=== PATIENT | female | born 1960 | race Caucasian/White ===

== ENCOUNTER 2017-04-24 11:31 | Emergency (ER) | payer OTHER ==
[2017-04-24 11:50] VITALS: BP 118/62
--- NOTE | 2017-04-24 12:24 | UC ---
Hand/Wrist HPI - HPI Summary HPI Summary: R 3rd finger slammed in doorway at home this morning. Small abrasions, pain, and swelling to distal finger. Denies hx of sx or fx to that finger. - History Of Current Complaint Chief Complaint: UCUpperExtremity Stated Complaint: FINGER LAC Time Seen by Provider: 04/24/17 12:07 Hx Obtained From: Patient ?: No Onset/Duration: Sudden Onset Severity Initially: Moderate Severity Currently: Mild Character Of Pain: Dull, Aching, Throbbing, Stiffness Aggravating Factor(s): Movement, Flexion, Extension Alleviating: Rest, Elevation Associated Signs And Symptoms: Positive: Swelling, Bruising Related History: Dominant Hand Right - Allergies/Home Medications Allergies/Adverse Reactions: Allergies Allergy/AdvReac Type Severity Reaction Status Date / Time No Known Allergies Allergy Verified 04/24/17 11:50 Home Medications: Home Medications NK [No Home Medications Reported] 04/24/17 [History Confirmed 04/24/17] PMH/Surg Hx/FS Hx/Imm Hx Previously Healthy: Yes - Surgical History Surgery Procedure, Year, and Place: back surg 7 years S5-L1 fusion - Family History Known Family History: Positive: Hypertension - Social History 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 Alcohol Use: Weekly Substance Use Type: None Smoking Status (MU): Never Smoked Tobacco Review of Systems Constitutional: Negative Skin: Negative Eyes: Negative ENT: Negative Respiratory: Negative Cardiovascular: Negative Gastrointestinal: Negative Genitourinary: Negative Motor: Negative Neurovascular: Negative Musculoskeletal: Arthralgia, Decreased ROM, Edema Neurological: Negative Psychological: Negative All Other Systems Reviewed And Are Negative: Yes Physical Exam Triage Information Reviewed: Yes Appearance: Well-Appearing, Pain Distress - minor, with hand movement Vital Signs: Initial Vital Signs Temp 97.5 F 04/24/17 11:46 Pulse 70 04/24/17 11:46 Resp 20 04/24/17 11:46 BP 118/62 04/24/17 11:46 Pulse Ox 98 04/24/17 11:46 Vital Signs Reviewed: Yes Eye Exam: Normal Eyes: Positive: Conjunctiva Clear ENT Exam: Normal ENT: Positive: Normal ENT inspection, Hearing grossly normal, Pharynx normal, TMs normal Dental Exam: Normal Neck exam: Normal Neck: Positive: Supple, Nontender, No Lymphadenopathy Respiratory Exam: Normal Respiratory: Positive: Chest non-tender, Lungs clear, Normal breath sounds, No respiratory distress, No accessory muscle use Cardiovascular Exam: Normal Cardiovascular: Positive: RRR, No Murmur Musculoskeletal Exam: Other - tender over R 2nd DIP and middle phalanx Musculoskeletal: Positive: ROM Limited @ - R 2nd finger Neurological Exam: Normal Psychological Exam: Normal Skin Exam: Other - superficial abrasions to R 2nd finger Hand/Wrist Course/Dx - Differential Dx/Diagnosis Provider Diagnoses: R 2nd finger soft tissue crush injury Discharge - Discharge Plan Condition: Stable Disposition: HOME Patient Education Materials: Crush Injury (ED) Referrals: Joey Dixon MD [Primary Care Provider] - Additional Instructions: No fracture noted on x-ray. Most soft tissue crush injuries improve in a few days. See your primary care provider or return here if you have increasing redness, swelling, or drainage. You can remove the splint when you feel comfortable doing so.
--- NOTE | 2017-04-24 12:56 | RAD ---
Indication: Pain and swelling following crush injury to RIGHT third distal phalanx. Comparison: February 24, 2016 Technique: 3 views RIGHT third finger. REPORT AND IMPRESSION: Soft tissue swelling greatest about the mid to distal volar aspect. Negative for fracture or malalignment. Polyarticular mild osteoarthritis.
== END 2017-04-24 13:11 | disposition home or self-care (01) ==
LOC: UCEAST 11:31
DX: S60.410A Abrasion of right index finger, initial encounter (principal); W23.1XXA Caught, crushed, jammed, or pinched between stationary objects, initial encounter
CPT/HCPCS: 73140; 99213; G0463

== ENCOUNTER 2018-03-27 16:28 | Emergency (ER) | payer OTHER ==
[2018-03-27 16:35] VITALS: BP 102/68
[2018-03-27] MEDS ORDERED: Lidocaine 2% VISCOUS* 15 ML UDC PO ONE (16:50)
--- NOTE | 2018-03-27 20:15 | UC ---
Shakeel Golden Natalie, scribed for Kimani Downs MD on 03/27/18 at 1702 . Dental HPI - HPI Summary HPI Summary: The patient is a 57 y/o F presenting to [facility] c/o canker sores on left side of tongue after biting tongue on 03/22/18. She states that her glands feel swollen on the left side of her neck, and shes feeling run down. The patient says its very sore and painful. She rates the pain 9/10 in severity. - History of Current Complaint Chief Complaint: UCGI Stated Complaint: TONGUE INJURY Time Seen by Provider: 03/27/18 16:44 Hx Obtained From: Patient Onset/Duration: Sudden Onset, Lasting Days, Still Present Severity: Severe Pain Intensity: 9 Pain Scale Used: 0-10 Numeric Aggravating Factor(s): Nothing Alleviating Factor(s): Nothing - Allergies/Home Medications Allergies/Adverse Reactions: Allergies Allergy/AdvReac Type Severity Reaction Status Date / Time No Known Allergies Allergy Verified 03/27/18 16:35 Home Medications: Home Medications Ibuprofen 400 mg PO 03/27/18 [History] PMH/Surg Hx/FS Hx/Imm Hx Other Endocrine History: Rheumatoid arthritis Other Cardiovascular History: NEGATIVE: hypertension - Surgical History Surgical History: Yes Surgery Procedure, Year, and Place: back surg 7 years S5-L1 fusion - Family History Known Family History: Positive: Hypertension - Social History Alcohol Use: Occasionally Substance Use Type: None Smoking Status (MU): Never Smoked Tobacco Review of Systems Constitutional: Other - NEGATIVE: fever ENT: Other - cankor sores on left tongue, swollen glands in left side of neck All Other Systems Reviewed And Are Negative: Yes Physical Exam - Summary Physical Exam Summary: VITAL SIGNS: Reviewed. GENERAL: Patient is a well-developed and nourished female who is lying comfortable in the stretcher. Patient is not in any acute respiratory distress. HEAD AND FACE: Normocephalic EYES: PERRLA, EOMI x 2. EARS: Hearing grossly intact. MOUTH: Oropharynx within normal limits. There are canker sores on the left side of tongue. Tongue is erythematous, but is not swollen. NECK: Supple, trachea is midline, no adenopathy, no JVD, no carotid bruit. CHEST: Symmetric, no tenderness at palpation LUNGS: Clear to auscultation bilaterally. No wheezing or crackles. CVS: Regular rate and rhythm, S1 and S2 present, no murmurs or gallops appreciated. ABDOMEN: Soft, non-tender. Bowel sounds are normal. No abdominal abnormal pulsations. EXTREMITIES: Full ROM in all major joints, no edema, no cyanosis or clubbing. NEURO: Alert and oriented x 3. No acute neurological deficits. Speech is normal and follows commands. SKIN: Dry and warm Triage Information Reviewed: Yes Vital Signs: Initial Vital Signs Temp 97.4 F 03/27/18 16:31 Pulse 110 03/27/18 16:31 Resp 18 03/27/18 16:31 BP 102/68 03/27/18 16:31 Pulse Ox 97 03/27/18 16:31 Vital Signs Reviewed: Yes Dental Complaint Course/Dx - Course Course Of Treatment: The patient is a 57 y/o F presenting to [facility] c/o canker sores on left side of tongue after biting tongue on 03/22/18. She states that her glands feel swollen on the left side of her neck, and shes feeling run down. The patient says its very sore and painful. She rates the pain 9/10 in severity. It seems like the abrasion is a little infected. The patient's tongue will be augmented with Lidocaine for pain. She will be discharged with follow up with ENT, Dr. Jaime. If the symptoms do not improve w/in the next couple days she will f/u with ENT to r/o any malignancy. I discussed all the findings and test results with the patient. Patient was instructed to return to the urgent care or go to ER immediately if any of the symptoms return or worsens. Plan of care was discussed with the patient, and patient understands and agrees. All questions were answered to patient satisfaction. There were no further complaints or concerns. - Differential Dx/Diagnosis Provider Diagnoses: canker sore Discharge - Sign-Out/Discharge Documenting (check all that apply): Discharge/Admit/Transfer - Discharge Plan Condition: Stable Disposition: HOME Prescriptions: Amoxicillin/Clavulanate TAB* [Augmentin TAB 875*] 875 mg PO BID #20 tab Lidocaine 2% VISCOUS* [Xylocaine 2% Viscous*] 15 ml SWISH SPIT Q4H PRN #1 btl PRN Reason: Pain Patient Education Materials: Cellulitis (ED) Referrals: Star Jaime MD [Medical Doctor] - 7 Days Joey Dixon MD [Primary Care Provider] - Additional Instructions: FOLLOW UP WITH DR. JAIME WITHIN ONE WEEK FOR FURTHER ASSESSMENT. RETURN TO URGENT CARE OR THE ED FOR ANY WORSENING OR NEW SYMPTOMS. - Billing Disposition and Condition Condition: STABLE Disposition: HOME The documentation as recorded by the Shakeel clarke Natalie accurately reflects the service I personally performed and the decisions made by , Kimani Downs MD.
== END 2018-03-27 17:02 | disposition home or self-care (01) ==
LOC: UCEAST 16:28
DX: K12.0 Recurrent oral aphthae (principal); R59.0 Localized enlarged lymph nodes; M06.9 Rheumatoid arthritis, unspecified
CPT/HCPCS: 99212; G0463